=== PATIENT | female | born 1980 ===

== ENCOUNTER 2020-07-14 06:27 | Day surgery (SDC) | payer OTHER ==
[~2020-07-14 06:27] MED LIST: SYNTHROID50 MCG PO
== END 2020-07-14 11:36 | disposition home or self-care (01) ==
LOC: CIR.AMB 06:27
PROVIDERS: ATTEND Surgery Surgery of the Hand
DX: M67.432 Ganglion, left wrist (principal); Z20.822 Contact with and (suspected) exposure to COVID-19

== ENCOUNTER 2021-07-13 06:00 | Day surgery (SDC) | payer OTHER | END 2021-07-13 15:00 | disposition home or self-care (01) | LOC: CIR.AMB 06:00 | PROVIDERS: ATTEND Surgery Surgery of the Hand | DX: M71.342 Other bursal cyst, left hand (principal); Z20.822 Contact with and (suspected) exposure to COVID-19; F32.A Depression, unspecified; J45.909 Unspecified asthma, uncomplicated; E03.9 Hypothyroidism, unspecified ==